=== PATIENT | male | born 1975 | race Caucasian/White ===

== ENCOUNTER 2019-05-06 12:16 | Emergency (ER) | payer SELFPAY ==
[2019-05-06 12:23] VITALS: BP 128/83; PULSE 80; TEMP 98.3; BMI 32.9
[2019-05-06] MEDS ORDERED: KETOROLAC TROMETHAMINE 60 MG/2 ML VIAL IM ONE (12:31)
--- NOTE | 2019-05-06 12:34 | PDOC ---
History of Present Illness - General Chief Complaint: Back Pain Stated Complaint: LOWER BACK PAIN R/O UTI Time Seen by Provider: 05/06/19 12:31 - History of Present Illness Initial Comments: 05/06/19 12:32 44-year-old male without comorbidities presents for evaluation of lower back pain with bilateral posterior lateral leg radicular symptoms to his knees without loss of bowel or bladder function or systemic symptoms. 05/06/19 12:33 Of note patient's been having back pain for the last few months Past History - Past Medical History Allergies/Adverse Reactions: Allergies Allergy/AdvReac Type Severity Reaction Status Date / Time No Known Allergies Allergy Verified 05/06/19 12:19 Home Medications: Ambulatory Orders Cyclobenzaprine HCl [Flexeril 10 mg] 10 mg PO HS PRN #10 tablet 05/06/19 Methylprednisolone [Medrol Dose Jose L] 4 mg PO ASDIR #21 tablet 05/06/19 - Psycho Social/Smoking Cessation Hx Smoking History: Current some day smoker Number of Cigarettes Smoked Daily: 1 Information on smoking cessation initiated: No Hx Alcohol Use: No Drug/Substance Use Hx: No Review of Systems - Review of Systems Constitutional: No: Fever Musculoskeletal: Yes: Back Pain *Physical Exam - Vital Signs Last Vital Signs Temp Pulse Resp BP Pulse Ox 98.3 F 80 16 128/83 99 05/06/19 12:19 05/06/19 12:19 05/06/19 12:19 05/06/19 12:19 05/06/19 12:19 - Physical Exam Comments: 05/06/19 12:32 Lumbar spine skin color and temperature normal. There is no midline tenderness. Mild bilateral right and left paralumbar musculature spasm and tenderness. 5 of 5 strength bilateral lower extremities without gross sensorimotor deficits neurovascular intact thighs and calves are soft and nontender. Medical Decision Making - Medical Decision Making 05/06/19 12:32 Toradol in the ER Medrol Dosepak and Flexeril at home follow-up with neurosurgery Discharge - Discharge Information Problems reviewed: Yes Clinical Impression/Diagnosis: Lumbar radiculopathy Condition: Stable Disposition: HOME - Admission No - Additional Discharge Information Prescriptions: Cyclobenzaprine HCl [Flexeril 10 mg] 10 mg PO HS PRN #10 tablet PRN Reason: Muscle Spasms Methylprednisolone [Medrol Dose Jose L] 4 mg PO ASDIR #21 tablet - Follow up/Referral Referrals: Josue Rodriguez MD, [facility] [Staff Physician] - - Patient Discharge Instructions Patient Printed Discharge Instructions: Lumbar Radiculopathy, DI for Lumbar Radiculopathy Additional Instructions: Please start the steroid pack today and take the medication as directed. Return to the emergency room for worsening symptoms. Without fail please follow -up with neurosurgery in 1 to 2 days for further evaluation and treatment options. Avoid anti-inflammatory such as Advil Motrin Aleve and ibuprofen. You may supplement the steroid pack and muscle relaxer with Tylenol. - Post Discharge Activity
[2019-05-06] MEDS ORDERED: KETOROLAC TROMETHAMINE 60 MG/2 ML VIAL ONE (12:36)
== END 2019-05-06 12:47 | disposition home or self-care (01) ==
LOC: JERFT 12:16
PROC: 3E0233Z Introduction of Anti-inflammatory into Muscle, Percutaneous Approach (ICD-10-PCS; principal; 2019-05-06)
DX: M54.16 Radiculopathy, lumbar region (principal)
CPT/HCPCS: 99281-25